=== PATIENT | male | born 1990 | race African-American/Black ===

== ENCOUNTER 2016-12-22 20:30 | Emergency (ER) | payer OTHER ==
[2016-12-22 20:51] VITALS: BP 140/84
--- NOTE | 2016-12-22 21:25 | UC ---
Carlos Alberto Keller Thomas, scribed for Grace Dickinson MD on 12/22/16 at 2102 . Lower Extremity/Ankle HPI - HPI Summary HPI Summary: The pt is a 26 y/o M presenting to [facility] c/o L knee pain that began today at 19: 30 when he was playing soccer. The mechanism of injury is unclear was not a fall , and he says that he slowly lowered himself to the ground after onset of pain. He says that he hears a lot of cracking in the knee. + swelling. When asked the specific location of the pain, he responds everything is sore. He did not continue playing after the injury. The pain is rated 3/10. The pain is aggravated by movement and is alleviated by rest. The patient has treated the pain with nothing [facility]. Pt denies foot pain, ankle pain, hip pain, or any other complaints. Denies paresthesias. He has a history of R ACL tear with surgical repair. The patient does not have a PCP. He did not have any alcohol today. Patients medication reviewed this visit. - History of Current Complaint Chief Complaint: UCLowerExtremity Stated Complaint: KNEE INJURY Time Seen by Provider: 12/22/16 20:45 Hx Obtained From: Patient Onset/Duration: Sudden Onset, Lasting Minutes - onset today at 19:30, Still Present Pain Intensity: 3 Pain Scale Used: 0-10 Numeric Aggravating Factor(s): Standing, Ambulation Alleviating Factor(s): Rest Able to Bear Weight: No Related History: Other - Injured L knee while playing soccer - Allergies/Home Medications Allergies/Adverse Reactions: Allergies Allergy/AdvReac Type Severity Reaction Status Date / Time No Known Allergies Allergy Verified 12/22/16 20:46 Home Medications: Home Medications NK [No Home Medications Reported] 12/22/16 [History Confirmed 12/22/16] PMH/Surg Hx/FS Hx/Imm Hx Previously Healthy: No Endocrine History: Other Other Endocrine History: NEG: DM Cardiovascular History: Other Other Cardiovascular History: NEG: HTN - Surgical History Surgical History: Yes Surgery Procedure, Year, and Place: RIGHT ACL SURGERY - Family History Known Family History: Positive: Diabetes - Social History Occupation: Student Lives: With Family Alcohol Use: Occasionally Substance Use Type: None Smoking Status (MU): Never Smoked Tobacco Review of Systems Constitutional: Other - NEG: fever Motor: Other - left knee Musculoskeletal: Other: - POS: L knee pain Neurological: Negative Psychological: Negative All Other Systems Reviewed And Are Negative: Yes Physical Exam Triage Information Reviewed: Yes Appearance: Well-Appearing, No Pain Distress - discomfort with movement, Well- Nourished Vital Signs: Initial Vital Signs Temp 98.2 F 12/22/16 20:44 Pulse 89 12/22/16 20:44 Resp 16 12/22/16 20:44 BP 140/84 12/22/16 20:44 Pulse Ox 99 12/22/16 20:44 Respiratory: Positive: No respiratory distress, No accessory muscle use Cardiovascular: Positive: Other: - 2+ DP, PT CBT < 2 sec Musculoskeletal: Positive: Other: - + SLE + flex knee with pain > 60 + flex/ext ankle + great toe extension + TTP medial edge of patella/joint line neg anterior/posterior drawer neg laxity to lateral joint testing Neurological Exam: Normal Neurological: Positive: Alert, Other: - + gross sensation throughout Psychological Exam: Normal Skin Exam: Normal Diagnostics - Radiology Knee XR Xray Interpretation: No Acute Changes - Normal knee radiograph as described above. If the patient's symptoms persist, follow-up imaging is recommended. Radiology Interpretation Completed By: Radiologist Re-Evaluation - Re-Evaluation First Eval Re-Evaluation Time: 21:45 Comment: reviewed imaging with patient. will d/c with jewel wrap and crutches. ice. f/u with sport med or [place] Lower Extremity Course/Dx - Course Course Of Treatment: PT presents with diffuse knee pain following sudden stop playing soccer. Pt with pain along medial joint line with direct palpation. PT without laxity of ligament. PT with diffuse edema. Will check xray. ice. Pt declined analgesia - Differential Dx/Diagnosis Provider Diagnoses: left knee sprain Discharge - Discharge Plan Condition: Stable Disposition: HOME Patient Education Materials: Knee Sprain (ED) Referrals: [facility] [Provider Group] [facility] [Provider Group] - 1 Week ([phone] [place] [address] 5th floor) Additional Instructions: - Wear jewel wrap for comfort and support - Apply ice (20 min at a time) every 2-3 hours for the next 2 days - Use crutches until you can walk normally without a limp - Elevate your leg - this will help with swelling and pain - Okay to alternate ibuprofen (Advil, Motrin) and tylenol every 3hours for pain. Take with food. Do NOT take for more than 4-5 days - Contact [facility] or the Sports management group to schedule a follow-up appointment. - Contact your doctor to arrange a follow-up appointment next week. Contact your doctor or return with questions or concerns The documentation as recorded by the Carlos Alberto lao Thomas accurately reflects the service I personally performed and the decisions made by , Grace Dickinson MD.
--- NOTE | 2016-12-22 21:39 | RAD ---
INDICATION: Knee pain acquired during soccer COMPARISON: None TECHNIQUE: 4 view radiograph of the left knee. FINDINGS: The visualized bones are well-corticated and properly aligned. The joint spaces are properly maintained. There is no radiographic evidence of joint effusion. There is no acute fracture, dislocation or other focal bony abnormality. IMPRESSION: Normal knee radiograph as described above. If the patient's symptoms persist, follow-up imaging is recommended.
== END 2016-12-22 22:07 | disposition home or self-care (01) ==
LOC: UCEAST 20:30
DX: S83.92XA Sprain of unspecified site of left knee, initial encounter (principal); X58.XXXA Exposure to other specified factors, initial encounter; Y93.66 Activity, soccer; Y92.322 Soccer field as the place of occurrence of the external cause
CPT/HCPCS: 99213; G0463

== ENCOUNTER 2017-01-25 06:06 | Day surgery (SDC) | payer OTHER ==
[~2017-01-25 06:06] MED LIST: Buffered Lidocaine 0.9% SYRIN* 5 ML/SYR SYRINGE INTRADERM ONE; Dexamethasone IV* 4 MG/ML 1 ML (4 MG) IV SLOW PU ONE; Famotidine IV* 10 MG/ML 2 ML (20 mg) IV ONE
[2017-01-25] MEDS ORDERED: ceFAZolin 2 GM PREMIX (*) 2 GM/50 ML BAG IVPB ONE (06:30)
[2017-01-25] MEDS ORDERED: Famotidine IV* 10 MG/ML 2 ML (20 mg) ONE (06:30)
[2017-01-25] MEDS ORDERED: Dexamethasone IV* 4 MG/ML 1 ML (4 MG) ONE (06:30)
[2017-01-25] MEDS ORDERED: Buffered Lidocaine 0.9% SYRIN* 5 ML/SYR SYRINGE ONE (06:30)
[2017-01-25] MEDS ORDERED: Lidocaine 1% MPF wEPI 200,000* 30 ML SDV ONE (07:02)
[2017-01-25] MEDS ORDERED: Bupivacaine 0.25% SDV* 30 ML ONE (07:02)
[2017-01-25] MEDS ORDERED: Propofol* 10 MG/ML 20 ML BTL IV PUSH ONE (07:17)
[2017-01-25] MEDS ORDERED: Midazolam* 1 MG/ML 5 ML VIAL (5 MG) ONE ×2 (07:17→10:49)
[2017-01-25] MEDS ORDERED: Ketorolac INJ* 30 MG/ML 1 ML VIAL ONE (07:17)
[2017-01-25] MEDS ORDERED: Ondansetron INJ* 2 MG/ML VIAL ONE (07:17)
[2017-01-25] MEDS ORDERED: Lidocaine 2% PF * 5 ML VIAL ONE (07:17)
[2017-01-25] MEDS ORDERED: fentaNYL* 50 MCG/ML 5 ML VIAL (250 MCG VIAL) ONE (07:17)
[2017-01-25] MEDS ORDERED: Atracurium* 10 MG/ML 10 ML VIAL ONE (07:17)
[2017-01-25] MEDS ORDERED: Glycopyrrolate IV* 0.2 MG/ML 1 ML VIAL ONE (07:40)
[2017-01-25] MEDS ORDERED: fentaNYL* 50 MCG/ML 2 ML VIAL (100 MCG VIAL) IV PRN (08:32)
[2017-01-25] MEDS ORDERED: Scopolamine 1.5 mg* PATCH TRANSDERM PRN (08:32)
[2017-01-25] MEDS ORDERED: DiMENhydriNATE IV* 50 MG/ML VIAL IV PUSH PRN (08:32)
[2017-01-25] MEDS ORDERED: Ondansetron INJ* 2 MG/ML VIAL IV PRN (08:32)
[2017-01-25] MEDS ORDERED: HYDROmorphone INJ* 2 MG/ML CARPUJECT SYRINGE IV PRN (08:32)
[2017-01-25] MEDS ORDERED: oxyCODONE/Acetamin 5/325 MG* TAB PO PRN (08:32)
[2017-01-25] MEDS ORDERED: fentaNYL* 50 MCG/ML 2 ML VIAL (100 MCG VIAL) ONE ×3 (09:24→11:15)
[2017-01-25] MEDS ORDERED: oxyCODONE/Acetamin 5/325 MG* TAB ONE (10:53)
[2017-01-25 13:28] VITALS: BP 152/88
--- NOTE | 2017-01-26 08:00 | OP ---
OPERATIVE REPORT: DATE OF OPERATION: 01/25/17 - [facility] DATE OF : 89 SURGEON: Abdirahman Dover MD VOLLEYBALL ASSEMBLER: ERIC Pennington An clinical education assistant was needed for the entirety of the case to help with positioning and retraction, and was utilized throughout all portions of the case. ANESTHESIOLOGIST: Dr. Johansen. ANESTHESIA: General. PRE-OP DIAGNOSIS: Left knee grade 3 ACL rupture. POST-OP DIAGNOSES: 1. Left knee grade 3 ACL rupture. 2. Lateral meniscal complex tear. 3. Undersurface of the medial meniscus tear. 4. A full thickness medial femoral condyle lesion, grade 4 lesion, which was about 1.5 x 1.5 cm. OPERATIVE PROCEDURES: 1. Left knee arthroscopy with partial lateral meniscectomy. 2. Microfracture of the medial femoral condyle. 3. ACL reconstruction with BTB autograft. IMPLANTS USED: One 7 x 25 mm SoftSilk, one 9 x 25 mm SoftSilk screw. COMPLICATIONS: None. TOURNIQUET TIME: 30 minutes. INDICATIONS: Vargas Grewal is a 26-year-old male who presents with left knee stability that occurred on December 22. He sustained a non-contact injury. He had some pain that was medially based and some discomfort with gliding. He was diagnosed with a grade 3 ACL rupture as well as an MCL strain. He had a small lateral bone bruise, but no obvious meniscal tearing, no obvious medial femoral condyle lesion. Risks and benefits of surgery versus operative versus nonoperative procedure were discussed at length to include but not limited to, bleeding, infection, damage to nerves, vessels, surrounding structures, wound nonhealing, persistent pain, need for further surgery, scarring, stiffness, incomplete relief of symptoms, risks of anesthesia, retear, risks of arthritis, stiffness, persistent pain, and risk of re-rupture, risk of DVT, and risk of anesthesia. DESCRIPTION OF PROCEDURE: The patient was greeted in the preoperative area by the attending surgeon. Correct extremity was marked, consent was confirmed. The patient was then brought back to the operating suite where he was placed in a supine position on the operating room table. He then underwent general anesthesia with endotracheal intubation, after which an unsterile tourniquet was placed high on the proximal left knee. The lateral post was positioned. The left knee was examined and found to have range of motion from about 1 degree of passive where I could get him to 0 degrees and therefore I manipulated him. He was able to flex to about 125 degrees and overall he was quite stiff. After just manipulation prior to surgery, a bump was placed at the 90 degree position, the left leg was prepped and draped in the usual sterile fashion with a chlorhexidine soap, scrub and alcohol wipe, and a final prep with ChloraPrep. After appropriate surgical pause indicating side and site of procedure, and administration of antibiotics, the knee was injected with 1% lidocaine with epi. The Esmarch was used to exsanguinate the limb and the tourniquet was inflated to 250 mmHg. The midline incision over the patellar tendon was then made sharply with a 15 blade. Soft tissues were carefully dissected with layers for later closure. The paratenon was identified and sharply incised, again in layers for later closure. The tendon was identified, there was evidence of adhesion and bursa above the tendon itself; however, the tendon quality was in good condition. The center third of the patellar tendon was harvested using 10 blade, the patellar bone block was then harvested for a width of about 9 mm and length of about 26 mm and then the cuts were made with a sagittal saw. Distally, the bone block was 10 x about 30 mm. The bone blocks were carefully harvested and prepared on the back table by the attending surgeon as well as the clinical education assistant. Stay sutures were placed through the tibia for the tibial portion and through the bone block. This was then wrapped in saline-soaked gauze and placed on the back table. Attention was directed to the arthroscopy portion. The tourniquet was released for a total time of 30 minutes. The lateral portal was made through the capsule using a 11 blade. The scope was then positioned in the joint. The joint was examined. The patellofemoral joint had grade 0 to 1 changes. The medial and lateral gutters were intact without any obvious loose body. The scope was positioned in the medial compartment. There was evidence of full thickness cartilage defect with no evidence of healing about the medial femoral condyle in the weightbearing portion. The scope was brought into the notch. There was a full thickness grade 3 rupture of the ACL, completely off the femoral wall, the stump was visible, the PCL was intact. The scope was positioned in the medial compartment. The medial meniscus was carefully probed and there was a mild amount of undersurface tearing, but no obvious subluxation ; therefore, it was left alone. The knee was placed in a figure- of-four position. There was evidence of a complex lateral meniscal tear involving the posterior root as well as the body of the meniscus. This was in the white- white zone and was not able to be healed; however, after careful dissection and removal, there was evidence of red-white zone at the end. The remainder of this was rasped in the hope that this would heal back. The remainder of the body of the meniscus was intact. The lateral femoral condyle had grade 0 to 1 changes. Lateral plateau had grade 1 changes. The knee was then placed in 90 degrees and attention was directed to the ACL. The stump was debrided back using biters and paxton. Electrocautery device was used to skeletonize the lateral femoral condyle. The starting awl was used to make a pilot safety inspector hole to consulting utility forester and gauge where the femoral tunnel should be placed. Attention was directed to the footprint. The tibial footprint was prepared by using electrocautery device to remove the excess stump. The tip-to- tip guide was placed at 52 degrees and the guidewire was placed in appropriate position and overdrilled with a 10 mm full bore reamer. The tunnel was carefully rasped, excess bone graft was then kept for later bone grafting of the patella and tibial defect. Once the tibial tunnel was then carefully rasped and soft tissue was removed, attention was directed to the femoral tunnel. The knee was then carefully hyperflexed. The straight guide was then placed at the center of the femoral footprint and a Beath pin was then drilled through the center of the femoral footprint out to the lateral condyle and out to the skin. This was then overdrilled with a size 9 mm low-profile reamer to a depth of about 27 mm. All excess bone and debris were removed with good back wall and back of the tunnel and the tunnel was found to be in good position. All excess bone was removed. The tunnel was then carefully notched. A #2 Ethibond suture was passed through the eyelet of the Beath pin, which was then advanced through the skin, throughout the lateral femur and then passed antegrade through the tibial tunnel. The graft was then brought back to the table and carefully passed under arthroscopic visualization. It was then well seated in the femoral tunnel. This was then secured with a 7 x 25 mm SoftSilk screw with excellent purchase. The knee was then taken through full extension. There was no evidence of impingement of the grasp. The knee was much easier to extend at this point. The knee was then cycled approximately 15 times with excellent purchase. He was able to be hyperflexed to about 140 degrees at this point. Once it was cycled, the scope was brought back to the joint and examined, the grasp was found to be in good position. The knee was then placed in about 10 degrees of flexion with attention on the tibial sutures as well as the posterior drawer. A size 9 x 25 mm SoftSilk screw was used to secure the bone block. Both screws were placed with excellent purchase. The range of motion was assessed and found to have good range of motion. The Светлана was checked and found to be stable. The scope was then brought back into the joint and found to have no changing of the graft, which was in good position. At this point, attention was directed to the medial femoral condyle defect. Again, this is a full thickness cortical defect with no evidence of scar tissue. Decision was made to microfracture this for betterment of the patient' s well being. This injury happened almost a month ago and there is no evidence of scar tissue. A Aga awl was then used to do a small microfracture of the medial femoral condyle. A slight evidence of a blush of blood was identified. Final views were obtained. The knee was taken through range of motion again. The tendon was closed with 0 Vicryl in an interrupted fashion. The knee was sterilely lavaged and irrigated. The wounds were copiously irrigated. The patellar tendon was closed with 0 Vicryl in an interrupted fashion. The bone graft was then placed in the patellar defect. It was oversewn with 0 Vicryl. The paratenon was closed with 2-0 Vicryl in a running fashion. Any excess bone graft was placed in the tibial tunnel. The wound was irrigated again. The subcutaneous tissue was closed with 2-0 Vicryl and the skin with 3-0 Monocryl. Sterile dressing was applied. The wound as well as the knee were intraarticularly injected with 0.25% Marcaine plain. Sterile dressings were applied and a Cryo/Cuff as well as a knee brace were locked in extension. He was then awoken from anesthesia and transferred to PACU in stable condition. POSTOPERATIVE PLAN: He will be nonweightbearing to about 6 weeks. He will be allowed range of motion as tolerated. He will be discharged on pain medications as well as antibiotics. I will see the patient back in 10 to 14 days. DVT prophylaxis was considered, but deferred due to no previous personal or family history. [id number]/[facility] #: [id number] MTDD
[2017-01-28] MEDS ORDERED: Scopolomine PATCH Remove* 1 NOTE MISC PATCH OFF ONE (08:33)
== END 2017-01-25 13:10 | disposition home or self-care (01) ==
LOC: OR 06:06
PROVIDERS: ATTEND Orthopaedic Surgery
DX: S83.512A Sprain of anterior cruciate ligament of left knee, initial encounter (principal); S83.272A Complex tear of lateral meniscus, current injury, left knee, initial encounter; S83.242A Other tear of medial meniscus, current injury, left knee, initial encounter; S89.82XA Other specified injuries of left lower leg, initial encounter; X50.0XXA Overexertion from strenuous movement or load, initial encounter; Y93.66 Activity, soccer; Y92.322 Soccer field as the place of occurrence of the external cause
CPT/HCPCS: A9270-GY; C1713; J0690; J1100; J1885; J2001; J2250; J2405; J2704; J3010